=== PATIENT | female | born 1995 | race Asian ===

== ENCOUNTER 2019-02-21 08:54 | Emergency (ER) | payer OTHER ==
--- NOTE | 2019-02-21 09:14 | ED ---
HPI Chest Pain - HPI Summary HPI Summary: This patient is a 23 year old female presenting to [facility] with a chief complaint of chest pain since 3 days ago. She states it was difficult to get out of bed today. She states she recently just finished a course of antibiotics for a root canal. She described the pain as soreness/tightness at the mid sternal area with associated heart burn. She states the pain is radiating across the chest starting this morning. She reports skin diaphoresis last night. She denies fever and SOB. The patient does not smoke. No Hx of Diabetes or CAD. Hx of SVT. Medications reviewed, allergies noted. - History of Current Complaint Chief Complaint: EDChestPainROMI Time Seen by Provider: 02/21/19 09:08 Hx Obtained From: Patient Onset/Duration: Started Days Ago Pain Intensity: 2 Pain Scale Used: 0-10 Numeric Chest Pain Location: Mid Sternal Character: Burning, Tightness - Allergy/Home Medications Allergies/Adverse Reactions: Allergies Allergy/AdvReac Type Severity Reaction Status Date / Time amoxicillin Allergy Hives Verified 02/21/19 09:06 Home Medications: Home Medications Levonorgestrel-Ethin Estradiol [Aubra-28 Tablet] 1 each PO DAILY 02/21/19 [ History Confirmed 02/21/19] PMH/Surg Hx/FS Hx/Imm Hx Endocrine/Hematology History: Denies: Hx Diabetes Cardiovascular History: Reports: Hx Supraventricular Ventricular Tachycardia Denies: Hx Coronary Artery Disease Infectious Disease History: No Infectious Disease History: Denies: Traveled Outside the [place] in Last 30 Days - Family History Known Family History: Positive: Cardiac Disease - Social History Occupation: Employed Full-time Alcohol Use: Rare Hx Substance Use: No Hx Tobacco Use: No Review of Systems Positive: Skin Diaphoresis. Negative: Fever Positive: Chest Pain Negative: Shortness Of Breath All Other Systems Reviewed And Are Negative: Yes Physical Exam - Summary Physical Exam Summary: Constitutional: Well-developed, Well-nourished, Alert. (-) Distressed Skin: Warm, Dry HENT: Normocephalic; Atraumatic Eyes: Conjunctiva normal Neck: Musculoskeletal ROM normal neck. (-) JVD, (-) Stridor, (-) Tracheal deviation Cardio: Rhythm regular, rate normal, Heart sounds normal; Intact distal pulses; Radial pulses are 2+ and symmetric. (-) Murmur Pulmonary/Chest wall: Effort normal. (-) Respiratory distress, (-) Wheezes, (-) Rales Abd: Soft, (-) tenderness, (-) Distension, (-) Guarding, (-) Rebound Musculoskeletal: (-) Edema. Good pulses bilaterally in radius, No calf tenderness, No venous cords, No pain with dorsiflexion of foot Lymph: (-) Cervical adenopathy Neuro: Alert, Oriented x3 Psych: Mood and affect Normal Triage Information Reviewed: Yes Vital Signs On Initial Exam: Initial Vitals Temp Pulse Resp BP Pulse Ox 99.5 F 91 14 115/72 100 02/21/19 08:56 02/21/19 08:56 02/21/19 08:56 02/21/19 08:56 02/21/19 08:56 Vital Signs Reviewed: Yes Procedures - Sedation Patient Received Moderate/Deep Sedation with Procedure: No Diagnostics - Vital Signs Vital Signs Temp Pulse Resp BP Pulse Ox 02/21/19 08:56 99.5 F 91 14 115/72 100 - Laboratory Result Diagrams: 02/21/19 09:05 02/21/19 09:05 Lab Statement: Any lab studies that have been ordered have been reviewed, and results considered in the medical decision making process. - Radiology CXR Radiology Interpretation Completed By: Radiologist Summary of Radiographic Findings: No evidence for acute intrathoracic disease. ED Physician has reviewed this report. - EKG 0856 Cardiac Rate: NL EKG Rhythm: Sinus Rhythm - 87 BPM Summary of EKG Findings: T-wave inversion in III and aVF. No STEMI. ED Physician has reviewed and interpreted this EKG. Chest Pain Course/Dx - Course Course Of Treatment: Patient is here with 3 days of constant chest pain. Patient's symptoms are not consistent with ACS and she has no risk factors. Patient does have to PE risk factors of recent long car ride and estrogen use. Patient had a negative d-dimer performed. Patient had negative troponin. Patient EKG and chest x-ray. - Diagnoses Provider Diagnoses: Chest pain Discharge ED - Sign-Out/Discharge Documenting (check all that apply): Patient Departure - Discharge - Discharge Plan Condition: Stable Disposition: HOME Patient Education Materials: Chest Pain (ED) Referrals: [facility] [Outside] Additional Instructions: Follow up with your primary care physician in 1-3 days. Return to ED with worsening shortness of breath or Chest pain. - Billing Disposition and Condition Condition: STABLE Disposition: Home - Attestation Statements Document Initiated by Scribe: Yes Documenting Scribe: Mason Bolanos Provider For Whom Radha is Documenting (Include Credential): Royal Markham MD Scribe Attestation: Mason Swenson, scribed for Royal Markham MD on 02/21/19 at 1849. Scribe Documentation Reviewed: Yes Provider Attestation: The documentation as recorded by the Mason johnson accurately reflects the service I personally performed and the decisions made by , Royal Markham MD Status of Scribe Document: Viewed
[2019-02-21 09:38] LABS: ABS Eosinophils 0.1 10^3/ul (0-0.6); ABS Lymphocytes 1.1 10^3/ul (1.0-4.8); ABS Monocytes 0.7 10^3/ul (0-0.8); ABS Neutrophils 9.5 10^3/ul (1.5-7.7); Hematocrit 43 % (35-47); Hemoglobin 14.7 g/dL (12.0-16.0); Mean Corpuscular HGB Conc 34 g/dL (31-36); Mean Corpuscular Hemoglobin 32 pg (27-31); Mean Corpuscular Volume 92 fL (80-97); Mean Platelet Volume 6.6 fL (7.4-10.4); Platelet Count 325 10^3/uL (150-450); Red Blood Count 4.64 10^6 /uL (3.70-4.87); Red Cell Distribution Width 12 % (10-15); White Blood Count 11.4 10^3/uL (3.5-10.8)
[2019-02-21 09:54] LABS: Anion Gap 8 mmol/L (2-11); BUN/Creatinine Ratio 18.1 (8-20); Blood Urea Nitrogen 15 mg/dL (6-24); CO2 Carbon Dioxide 26 mmol/L (22-32); Calcium 9.7 mg/dL (8.6-10.3); Chloride 102 mmol/L (101-111); Glucose 90 mg/dL (70-100); Potassium 3.8 mmol/L (3.5-5.0); Sodium 136 mmol/L (135-145)
[2019-02-21 10:01] LABS: HCG Pregnancy < 0.60 mIU/mL
[2019-02-21] MEDS ORDERED: Al Hydrox/Mg Hydrox/Simet LIQ* 30 ML UDC PO ONE (10:05)
[2019-02-21 10:24] VITALS: BP 113/90
== END 2019-02-21 10:15 | disposition home or self-care (01) ==
LOC: ED 08:54
DX: R07.9 Chest pain, unspecified (principal); I47.1 Supraventricular tachycardia; Z88.0 Allergy status to penicillin
CPT/HCPCS: 36415; 71046; 80048; 84484; 84702; 85025; 85379; 93005; 99282; A9270-GY

== ENCOUNTER 2019-05-18 12:56 | Emergency (ER) | payer OTHER ==
[2019-05-18 13:21] VITALS: BP 122/84
--- NOTE | 2019-05-18 13:47 | UC ---
Respiratory Complaint HPI - HPI Summary HPI Summary: Patient is a 24yo female presenting with boyfriend for nasal congestion and productive cough x1 week. Patient states that cough is becoming less productive but still keeping her up at night. Also notes improving nasal congestion. Patient states that her cough has started to make her chest feel tight today. Denies sob and wheezing. Denies fever and chills. Denies n/v. Taking nyquil without relief. Denies h/o asthma, nonsmoker. - History of Current Complaint Chief Complaint: UCGeneralIllness Stated Complaint: COUGH Hx Obtained From: Patient Hx Last Menstrual Period: 05/09/19 Pain Intensity: 2 - Allergies/Home Medications Allergies/Adverse Reactions: Allergies Allergy/AdvReac Type Severity Reaction Status Date / Time amoxicillin Allergy Hives Verified 05/18/19 13:20 PMH/Surg Hx/FS Hx/Imm Hx - Surgical History Surgical History: None - Family History Known Family History: Positive: Cardiac Disease Negative: Diabetes - Social History Alcohol Use: Occasionally Substance Use Type: None Smoking Status (MU): Never Smoked Tobacco Review of Systems All Other Systems Reviewed And Are Negative: Yes Constitutional: Positive: Negative ENT: Positive: Sinus Congestion Respiratory: Positive: Cough, Other - chest tightness with cough Cardiovascular: Positive: Negative Gastrointestinal: Positive: Negative Musculoskeletal: Negative: Myalgia Neurological: Negative: Headache Physical Exam - Summary Physical Exam Summary: Vital Signs Reviewed: Yes A+Ox3, no distress Eyes: Conjunctiva Clear ENT: Hearing grossly normal, TM x 2 clear, moist, uvula midline, no exudate, no erythema Neck: Positive: Supple Respiratory: Positive: No respiratory distress, No accessory muscle use + CTA throughout no w/r Cardiovascular: RRR nl s1, s2 no m/r Musculoskeletal Exam: JEAN x 4 without difficulty Neurological: Positive: Alert Psychological: Positive: age appropriate behavior Skin: Positive: no rash, no ecchymosis Vital Signs: Initial Vital Signs Temp 99.1 F 05/18/19 13:17 Pulse 89 05/18/19 13:17 Resp 18 05/18/19 13:17 BP 122/84 05/18/19 13:17 Pulse Ox 100 05/18/19 13:17 Respiratory Course/Dx - Course Course Of Treatment: Discussed acute viral bronchitis with patient. VS normal, lung counds clear, and in no respiratory distress. I provided patient with tessalon perles to help alleviate coughing. Patient denied treatment with albuterol inhaler prescription to help alleviate chest tightness. Educated on symptomatic treatment and instructed to follow up if symptoms worsen or persist. Patient voiced understanding and agreed with treatment plan. - Differential Dx/Diagnosis Provider Diagnosis: Viral URI, Acute bronchitis with bronchospasm Discharge ED - Sign-Out/Discharge Documenting (check all that apply): Patient Departure All imaging exams completed and their final reports reviewed: No Studies - Discharge Plan Condition: Stable Disposition: HOME Prescriptions: Benzonatate CAP* [Tessalon 100 MG CAP*] 100 mg PO TID PRN #21 cap PRN Reason: Cough Patient Education Materials: Acute Bronchitis (ED), Bronchospasm (ED) Referrals: [facility] [Outside] - If Needed Additional Instructions: As discussed, your symptoms are caused by a virus and should resolve without treatment. You may continue to take over the counter cough and cold medications for your cold symptoms. Take tessalon perles for cough relief. Continue to use your humidifer at night. Get plenty of rest and increase fluids. Follow up with your primary care provider or the [facility] clinic listed below if your symptoms worsen or do not begin resolve within 1-2 weeks. - Billing Disposition and Condition Condition: STABLE Disposition: Home
== END 2019-05-18 14:05 | disposition home or self-care (01) ==
LOC: UCEAST 12:56
DX: J20.9 Acute bronchitis, unspecified (principal); J06.9 Acute upper respiratory infection, unspecified; M79.10 Myalgia, unspecified site; R51 Headache; Z88.0 Allergy status to penicillin
CPT/HCPCS: 99212; G0463